=== PATIENT | female | born 1985 | race Caucasian/White ===

== ENCOUNTER 2020-10-27 13:19 | Inpatient (IN) | payer MEDICAID ==
[~2020-10-27] VITALS: Ht 154.9 cm; Wt 109.8 kg
[2020-10-27 14:35] LABS: CLARITY URINE CLEAR (CLEAR); COLOR URINE YELLOW (YELLOW); KETONES URINE NEGATIVE (NEGATIVE); LEUKOCYTE ESTERASE URINE NEGATIVE (NEGATIVE); NITRITE URINE NEGATIVE (NEGATIVE); OCCULT BLOOD URINE NEGATIVE (NEGATIVE); PROTEIN URINE 2+ (NEGATIVE); SPECIFIC GRAVITY URINE 1.006 (1.005-1.030); UROBILINOGEN URINE 0.2 E.U./dL (0.2-1.0)
[2020-10-27 14:36] LABS: BASOPHILS % 0.7 % (0.0-2.0); EOSINOPHILS % 0.1 % (0.0-5.0); HEMATOCRIT. 32.8 % (36.0-48.0); HEMOGLOBIN. 10.7 g/dL (12.0-16.0); LYMPHOCYTES % 35.8 % (20.0-50.0); MEAN CORPUSCULAR HEMOGLOBIN 24.6 pg (28.0-32.0); MEAN CORPUSCULAR VOLUME 75.7 fL (81.0-99.0); MEAN PLATELET VOLUME 10.3 fl (7.4-10.4); MONOCYTES % 5.7 % (2.0-8.0); NEUTROPHILS % 57.7 % (40.0-76.0); PLATELET 169 x1000/uL (130-400); RED BLOOD CELL COUNT 4.33 mill/uL (4.2-5.4); RED CELL DISTRIBUTION WIDTH 15.4 % (11.6-14.6)
[2020-10-27 14:48] LABS: D-DIMER 2.81 mg/L FEU (<0.50); INR 0.9; PARTIAL THROMBOPLASTIN TIME 26.5 sec (23.4-31.0); PROTHROMBIN TIME 9.7 sec (9.6-11.0)
[2020-10-27 14:51] LABS: CHLORIDE 109 mEq/L (98-107)
[2020-10-27] MEDS ORDERED: MISOPROSTOL 100MCG TABLET VG SCH (15:45)
[2020-10-27] MEDS ORDERED: METHYLERGONOVINE MALEATE 0.2 MG/ML IM PRN (15:45)
[2020-10-27] MEDS ORDERED: LACTATED RINGERS 1,000 ML IV SCH (15:45)
[2020-10-27] MEDS ORDERED: DEXT 5%/LR + PITOCIN 20UNITS/L 1,000 ML IV SCH (15:45)
[2020-10-27] MEDS ORDERED: CARBOPROST TROMETHAMINE 250 MCG/ML AMPUL IM PRN (15:45)
[2020-10-27 17:13] LABS: HEPATITIS B SURFACE ANTIGEN NEGATIVE
[2020-10-27] MEDS ORDERED: HYDRALAZINE 20MG/ML VIAL IV PRN (18:00)
[2020-10-27] MEDS ORDERED: MAGNESIUM 4 G PREMIX 100 ML IV NR (18:00)
[2020-10-27] MEDS ORDERED: MAGNESIUM 20 G PREMIX (L & D) 500 ML IV SCH (18:00)
[2020-10-27] MEDS ORDERED: LABETALOL HCL 5MG/ML VIAL 20ML IV PRN ×3 (18:00)
[2020-10-27 20:27] LABS: *AMPHETAMINES SCREEN URINE NEGATIVE (NEGATIVE)
[2020-10-27 20:28] LABS: *BARBITURATES SCREEN URINE NEGATIVE (NEGATIVE); *BENZODIAZEPINES SCREEN URINE NEGATIVE (NEGATIVE); *COCAINE SCREEN URINE NEGATIVE (NEGATIVE); METHADONE URINE SCREEN NEGATIVE (NEGATIVE); OPIATES URINE SCREEN NEGATIVE (NEGATIVE); PHENCYCLIDINE URINE SCREEN NEGATIVE (NEGATIVE)
[2020-10-27 20:29] LABS: CANNABINOID URINE SCREEN NEGATIVE (NEGATIVE)
[2020-10-27] MEDS ORDERED: CITRIC ACID/SODIUM CITRATE SOLN 30ML UDC PO SCH ×2 (21:15→21:30)
[2020-10-27] MEDS ORDERED: CEFAZOLIN SODIUM 1000MG/VIAL ONE (21:19)
[2020-10-27] MEDS ORDERED: SODIUM CHLORIDE 0.9% 10ML VIAL ONE ×2 (21:19→21:28)
[2020-10-27] MEDS ORDERED: MORPHINE SULFATE/PF 1MG/ML 10ML AMP ONE (21:24)
[2020-10-27] MEDS ORDERED: EPHEDRINE SULFATE 50MG/ML VIAL ONE (21:28)
[2020-10-27] MEDS ORDERED: GLYCOPYRROLATE 0.2 MG/ML 2ML VIAL ONE (21:28)
[2020-10-27] MEDS ORDERED: OXYTOCIN 10 UNITS/ML 1ML ONE (21:52)
[2020-10-27] MEDS ORDERED: METOCLOPRAMIDE HCL 10MG/2ML VIAL ONE (21:54)
[2020-10-27] MEDS ORDERED: BISACODYL 10MG SUPP PR PRN (22:30)
[2020-10-27] MEDS ORDERED: HYDROCODONE/ACETAMINOPHEN 5/325MG TABLET PO PRN (22:30)
[2020-10-27] MEDS ORDERED: ACETAMINOPHEN WITH CODEINE 300/30MG TABLET PO PRN (22:30)
[2020-10-27] MEDS ORDERED: ONDANSETRON HCL 4MG/2ML INJ IV PRN (22:30)
[2020-10-27] MEDS ORDERED: DIPHENHYDRAMINE 25MG CAPSULE PO PRN (22:30)
[2020-10-27] MEDS ORDERED: RHO(D) IMMUNE GLOBULIN 300 MCG/SYR IM PRN (22:30)
[2020-10-27] MEDS ORDERED: HEMORRHOIDAL SUPP PR PRN (22:30)
[2020-10-28] VITALS (10 sets, daily range): BP systolic 127–161; BP diastolic 66–97
[2020-10-28] MEDS: KETOROLAC 30MG/ML VIAL IV PRN ×4 (00:08→21:40)
[2020-10-28] MEDS: DEXT 5%/LR + PITOCIN 20UNITS/L 1,000 ML IV SCH ×2 (01:24→08:57)
[2020-10-28] MEDS: DIPHENHYDRAMINE 50MG/ML VIAL IV PRN ×3 (04:42→20:26)
[2020-10-28] MEDS: MAGNESIUM/ALUMINUM HYDROXIDE/SIMETHICONE 30ML UDC PO SCH ×4 (07:30→20:25)
[2020-10-28] MEDS: SIMETHICONE 80MG TABLET CHEW PO SCH ×4 (08:00→20:25)
[2020-10-28] MEDS: FERROUS SULFATE 325MG TABLET PO SCH ×3 (08:57→17:28)
[2020-10-28] MEDS: PRENATAL VIT/FE FUMARATE/FA TABLET PO SCH (08:58)
[2020-10-28 09:25] LABS: BASOPHILS % 0.1 % (0.0-2.0); EOSINOPHILS % 0.1 % (0.0-5.0); HEMATOCRIT. 30.3 % (36.0-48.0); HEMOGLOBIN. 9.7 g/dL (12.0-16.0); LYMPHOCYTES % 24.4 % (20.0-50.0); MEAN CORPUSCULAR HEMOGLOBIN 24.5 pg (28.0-32.0); MEAN CORPUSCULAR VOLUME 76.8 fL (81.0-99.0); MEAN PLATELET VOLUME 9.7 fl (7.4-10.4); MONOCYTES % 5.9 % (2.0-8.0); NEUTROPHILS % 69.5 % (40.0-76.0); PLATELET 146 x1000/uL (130-400); RED BLOOD CELL COUNT 3.95 mill/uL (4.2-5.4); RED CELL DISTRIBUTION WIDTH 15.1 % (11.6-14.6)
[2020-10-28] MEDS: LABETALOL HCL 100MG TABLET PO SCH (20:26)
[2020-10-28] MEDS: DOCUSATE SODIUM 100MG CAPSULE PO SCH (20:27)
[2020-10-29] VITALS (7 sets, daily range): BP systolic 129–150; BP diastolic 72–86
[2020-10-29] MEDS: MAGNESIUM/ALUMINUM HYDROXIDE/SIMETHICONE 30ML UDC PO SCH ×3 (08:32→18:20)
[2020-10-29] MEDS: SIMETHICONE 80MG TABLET CHEW PO SCH ×3 (08:32→18:20)
[2020-10-29] MEDS: FERROUS SULFATE 325MG TABLET PO SCH ×3 (08:32→18:20)
[2020-10-29] MEDS: PRENATAL VIT/FE FUMARATE/FA TABLET PO SCH (08:33)
[2020-10-29] MEDS: LABETALOL HCL 100MG TABLET PO SCH ×2 (08:33→20:18)
[2020-10-29] MEDS: IBUPROFEN 400MG TABLET PO PRN ×2 (16:25→22:45)
[2020-10-29] MEDS: DOCUSATE SODIUM 100MG CAPSULE PO SCH (20:18)
[2020-10-30] VITALS: BP 142/79
[2020-10-30 04:00] VITALS: BP 138/88
[2020-10-30] MEDS: IBUPROFEN 400MG TABLET PO PRN (04:46)
[2020-10-30] MEDS ORDERED: IBUP-2028 PO (05:40)
[2020-10-30] MEDS ORDERED: FERR325T23 PO (05:40)
[2020-10-30] MEDS ORDERED: LABE100T5 PO (05:40)
[2020-10-30 08:00] VITALS: BP 148/70
[2020-10-30] MEDS: PRENATAL VIT/FE FUMARATE/FA TABLET PO SCH (09:11)
[2020-10-30] MEDS: FERROUS SULFATE 325MG TABLET PO SCH (09:11)
[2020-10-30] MEDS: LABETALOL HCL 100MG TABLET PO SCH (09:12)
[2020-10-30] MEDS: SIMETHICONE 80MG TABLET CHEW PO SCH (09:12)
[2020-10-30] MEDS: MAGNESIUM/ALUMINUM HYDROXIDE/SIMETHICONE 30ML UDC PO SCH (09:13)
== END 2020-10-30 11:10 | disposition home or self-care (01) | DRG 540 ==
LOC: 8 EST LDRP 13:19 → OBSVTOIN 13:19 → 8EST 10-28 00:40
PROVIDERS: ADMIT Obstetrics & Gynecology; ATTEND Obstetrics & Gynecology
PROC: 0UB70ZZ Excision of Bilateral Fallopian Tubes, Open Approach (ICD-10-PCS; principal; 2020-10-27)
PROC: 10D00Z1 Extraction of Products of Conception, Low, Open Approach (ICD-10-PCS; 2020-10-27)
DX: O13.4 Gestational [pregnancy-induced] hypertension without significant proteinuria, complicating childbirth (principal); O34.211 Maternal care for low transverse scar from previous cesarean delivery; E66.9 Obesity, unspecified; Z20.822 Contact with and (suspected) exposure to COVID-19; O24.429 Gestational diabetes mellitus in childbirth, unspecified control; O99.02 Anemia complicating childbirth; O99.214 Obesity complicating childbirth; Z37.0 Single live birth; Z3A.38 38 weeks gestation of pregnancy; O09.523 Supervision of elderly multigravida, third trimester; D64.9 Anemia, unspecified; Z30.2 Encounter for sterilization
CPT/HCPCS: 36415; 80053; 80305; 81003; 82947; 82962; 84550; 85025; 85379; 85384; 86592; 86703; 86762; 86850; 86900; 86920; 87340; 87426; 88302; 88307; 99281; J0690; J1200; J1885; J2274; J2590; J2765; J3475; J3490; A4315